=== PATIENT | male | born 1950 | race Two or more races ===

== ENCOUNTER 2022-12-21 20:03 | Emergency (ER) | payer OTHER ==
[~2022-12-21] VITALS: Ht 190.5 cm; Wt 127.0 kg
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
[2022-12-21] MEDS ORDERED: HYDROMORPHONE 1 MG/1 ML DISP.SYRIN IV ONE (20:30)
[2022-12-21] MEDS ORDERED: IV NS 0.9% 1,000 ML IV ONE (20:30)
[2022-12-21] MEDS ORDERED: HYDROMORPHONE 1 MG/1 ML DISP.SYRIN ONE (20:54)
[2022-12-21] MEDS ORDERED: KETOROLAC TROMETHAMINE INJ 30 MG/ML VIAL ONE (22:07)
[2022-12-21] MEDS ORDERED: CYCLOBENZAPRINE 10 MG TABLET PO ONE (22:30)
[2022-12-21] MEDS ORDERED: KETOROLAC TROMETHAMINE INJ 30 MG/ML VIAL IV ONE (22:30)
--- NOTE | 2022-12-22 02:29 | NUR ---
AWAITING TRANPORTATTION
--- NOTE | 2022-12-22 02:29 | NUR ---
IV removed. Catheter intact and site benign. Pressure and 4x4 applied to site. No bleeding noted.Patient discharged to home in stable condition. Written and verbal after care instructions given. Patient verbalizes understanding of instruction.
--- NOTE | 2022-12-22 02:45 | NUR ---
rec'd a call from Dr. Herrera who approved a BLS transportation back home
--- NOTE | 2022-12-22 03:23 | NUR ---
[facility]ORT[facility] BACK HOME WITH [facility], ETA: [id number]
--- NOTE | 2022-12-22 05:23 | NUR ---
Patient is resting comfortably in bed with eyes closed. Easily aroused. VSS
[2022-12-22 06:14] VITALS: BP 138/65
== END 2022-12-22 06:15 | disposition home or self-care (01) ==
LOC: ER 20:04
DX: S70.02XA Contusion of left hip, initial encounter (principal); S09.90XA Unspecified injury of head, initial encounter; S89.92XA Unspecified injury of left lower leg, initial encounter; S89.91XA Unspecified injury of right lower leg, initial encounter; M54.2 Cervicalgia; I11.0 Hypertensive heart disease with heart failure; I50.9 Heart failure, unspecified; E78.00 Pure hypercholesterolemia, unspecified; G35 Multiple sclerosis; V00.141A Fall from scooter (nonmotorized), initial encounter; Y93.89 Activity, other specified; Y92.480 Sidewalk as the place of occurrence of the external cause; Y99.8 Other external cause status
CPT/HCPCS: 99285; 72125; 96374; 96361; 96375; 72170; 73552; 73630 ×2; 73564 ×2; 73590 ×2; 70450; 73700; J1885; J7030; J1170

== ENCOUNTER 2024-07-16 23:10 | Emergency (ER) | payer OTHER, MEDICAID ==
[~2024-07-16] VITALS: Ht 188 cm; Wt 124.7 kg
[2024-07-17] MEDS ORDERED: ACETAMINOPHEN ES 500 MG TABLET ONE (00:30)
[2024-07-17] MEDS: IV NS 0.9% 1,000 ML BAG IV ONE (00:35)
[2024-07-17] MEDS: ACETAMINOPHEN ES 500 MG TABLET PO ONE (00:35)
[2024-07-17 01:15] LABS: BASOPHILS # (AUTO) 0.1 K/uL (0.0-0.2); BASOPHILS % (AUTO) 0.9 % (0.0-2.0); EOSINOPHILS # (AUTO) 0.1 K/uL (0.0-0.7); EOSINOPHILS % (AUTO) 0.7 % (0.0-6.0); HEMATOCRIT 38 % (39-51); HEMOGLOBIN 12.6 g/dL (13.5-17.5); LYMPHOCYTES # (AUTO) 1.9 K/uL (0.8-4.8); LYMPHOCYTES % (AUTO) 12.4 % (20.0-44.0); MEAN CORPUSCULAR HEMOGLOBIN 31 PG (26.0-33.0); MEAN CORPUSCULAR HGB CONC 33 g/dl (31.0-36.0); MEAN CORPUSCULAR VOLUME 93 fL (80-96); MONOCYTES # (AUTO) 1.3 K/uL (0.1-1.30); MONOCYTES % (AUTO) 8.5 % (2.0-12.0); NEUTROPHILS # (AUTO) 12.1 K/uL (1.8-8.9); NEUTROPHILS % (AUTO) 77.5 % (43.0-81.0); PLATELET COUNT (AUTO) 242 K/uL (150-450); RED BLOOD CELL COUNT(AUTO) 4.07 MIL/uL (4.5-6.0); WHITE BLOOD COUNT (AUTO) 15.6 K/uL (4.3-11.0)
[2024-07-17 01:25] LABS: CALCIUM, SERUM 8.6 mg/dL (8.5-10.1); CARBON DIOXIDE 24 mmol/L (21-32); CHLORIDE 107 mmol/L (98-107); CREATININE 0.8 mg/dL (0.6-1.3); GLUCOSE 136 mg/dL (74-106); SODIUM SERUM 141 mmol/L (136-145); UREA NITROGEN, BLOOD 8 mg/dL (7-18)
[2024-07-17 01:33] LABS: ALANINE AMINOTRANSFERASE 15 U/L (12-78); ALKALINE PHOSPHATASE 64 U/L (46-116); ASPARTATE AMINOTRANSFERASE 15 U/L (15-37); BILIRUBIN,DIRECT 0.1 mg/dL (0.0-0.2); BILIRUBIN,TOTAL 0.6 mg/dL (0.2-1.0); TOTAL PROTEIN, SERUM 6.4 g/dL (6.4-8.2)
[2024-07-17] MEDS ORDERED: POTASSIUM CHLORIDE 20 MEQ TAB.PRT.SR PO ONE (01:48)
[2024-07-17] MEDS: POTASSIUM CHLORIDE 20 MEQ TAB.PRT.SR PO ONE (01:55)
[2024-07-17] MEDS: MAGNESIUM OXIDE 400 MG TABLET ONE ×2 (02:04→06:51)
[2024-07-17] MEDS: MAGNESIUM OXIDE 400 MG TABLET PO ONE (02:07)
[2024-07-17 03:47] LABS: APPEARANCE,URINE CLOUDY (CLEAR); BILIRUBIN,URINE NEGATIVE (NEGATIVE); BLOOD, URINE 2+ Ery/uL (NEGATIVE); COLOR,URINE YELLOW (YELLOW); KETONES,URINE NEGATIVE (NEGATIVE); LEUKOCYTE ESTERASE ,URINE 3+ (NEGATIVE); NITRITE, URINE NEGATIVE (NEGATIVE); PH,URINE 6.5 (5.0-8.0); PROTEIN,URINE 2+ mg/dl (NEGATIVE); UGLUCOSE NEGATIVE (NEGATIVE)
[2024-07-17 04:01] LABS: ADD URINE CULTURE YES; BACTERIA,URINE 2+ /HPF (None Seen); WBC,URINE 81-100 /HPF (0-3)
[2024-07-17 04:02] LABS: SQUAMOUS EPITHELIAL CELL,UR Few /HPF (None Seen)
[2024-07-17] MEDS ORDERED: CEFTRIAXONE 1GM BAG (ER ONLY) 50 ML IV ONE (04:57)
[2024-07-17] MEDS: CEFTRIAXONE 1GM BAG (ER ONLY) 1 GM/50 ML PIGGYBACK IV ONE (05:02)
[2024-07-17 12:53] VITALS: BP 135/70; TEMP 98.4; O2SAT 98
== END 2024-07-17 13:04 | disposition short-term general hospital (02) ==
LOC: ER 23:11
DX: N39.0 Urinary tract infection, site not specified (principal); R53.1 Weakness; E78.5 Hyperlipidemia, unspecified; E83.42 Hypomagnesemia; E86.0 Dehydration; E87.6 Hypokalemia; G35 Multiple sclerosis; G82.20 Paraplegia, unspecified; I11.0 Hypertensive heart disease with heart failure; I50.9 Heart failure, unspecified; Z86.73 Personal history of transient ischemic attack (TIA), and cerebral infarction without residual deficits
CPT/HCPCS: 99285; 96365; 70450; 71045; 96361; 93005; 85025; 80048; 87086; 80076; 83735; 81001; 36415; 84484; J7030; J0696